=== PATIENT | female | born 2000 | race Caucasian/White ===

== ENCOUNTER 2022-03-15 16:02 | Outpatient (CLI) | payer OTHER, SELFPAY ==
[2022-03-15 16:22] LABS: HCG Qualitative* Negative (Negative)
[2022-03-15 16:24] LABS: Hematocrit 39.7 % (33.0-51.0); Hemoglobin* 13.3 gm/dL (12.0-16.0); Mean Corpuscular HGB Conc 34 gm/dL (32-36); Mean Corpuscular Hemoglobin 30 pg (26-34); Mean Corpuscular Volume 90 fL (80-100); Platelet Count* 325 K/uL (140-440); White Blood Count* 7.08 K/uL (4.50-11.00)
[2022-03-15 16:25] LABS: Slide Review Reflex No
[2022-03-15 16:26] LABS: Blood Urea Nitrogen* 12 mg/dl (8-26); Carbon Dioxide* 24 mmol/L (20-32); Chloride* 104 mmol/L (98-109); Creatinine* 0.9 mg/dl (0.6-1.3); Glucose* 85 mg/dl (60-115); Ionized Calcium* 1.17 mmol/L (1.11-1.33); Potassium* 4.1 mmol/L (3.5-4.9); Sodium* 141 mmol/L (138-146)
== END 2022-03-15 16:03 | disposition home or self-care (01) ==
LOC: LKVREF 16:03
PROVIDERS: PCP Pediatrics; Visit Provider Student in an Organized Health Care Education/Training Program
DX: R10.9 Unspecified abdominal pain (principal); R30.0 Dysuria
CPT/HCPCS: 84703; 85027; 87086

== ENCOUNTER 2022-04-15 16:00 | Outpatient (CLI) | payer OTHER, SELFPAY ==
[2022-04-15 16:15] LABS: Chlamydia DNA Amplified* NOT DETECTED (No Detected); GC DNA Amplified* NOT DETECTED (No Detected)
== END 2022-04-15 16:01 | disposition home or self-care (01) ==
PROVIDERS: PCP Pediatrics; Visit Provider Physician Assistant
DX: R10.2 Pelvic and perineal pain (principal); N89.8 Other specified noninflammatory disorders of vagina; R30.0 Dysuria; Z12.4 Encounter for screening for malignant neoplasm of cervix; Z11.3 Encounter for screening for infections with a predominantly sexual mode of transmission
CPT/HCPCS: 87086; 87491; 87591; 88174